=== PATIENT | male | born 1975 | race Hispanic/Latino ===

== ENCOUNTER 2020-01-13 14:16 | Emergency (ER) | payer BC ==
[~2020-01-13] VITALS: Ht 177.8 cm; Wt 123.8 kg
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
[~2020-01-13 14:16] MED LIST: NAPROXEN500 MG PO
[2020-01-13] MEDS ORDERED: GLUCOPHAGE500 MG PO (16:02)
[2020-01-13] MEDS ORDERED: ONDANSETRON ODT8 MG PO (16:02)
[2020-01-13] MEDS ORDERED: OMEPRAZOLE20 MG PO (16:02)
[2020-01-13] MEDS ORDERED: GLIPIZIDE10 MG PO (16:22)
== END 2020-01-13 16:37 | disposition home or self-care (01) ==
LOC: ED 14:16
DX: E10.65 Type 1 diabetes mellitus with hyperglycemia (principal)
CPT/HCPCS: 80053; 81001; 82010; 82803; 83690; 85025; 96361; 96374; 96375; 99284-25; C9113; J2405; J7030

== ENCOUNTER 2021-09-10 17:09 | Emergency (ER) | payer BC ==
[~2021-09-10] VITALS: Ht 177.8 cm; Wt 113.4 kg
[~2021-09-10 17:09] MED LIST changes: +GLIPIZIDE10 MG PO; +GLUCOPHAGE500 MG PO; +OMEPRAZOLE20 MG PO; +ONDANSETRON ODT8 MG PO
--- NOTE | 2021-09-12 16:30 | EKG ---
[facility] [address] [place] [address] Signed Normal sinus rhythm Normal ECG When compared with ECG of 08-JAN-2017 09:02, PA interval has decreased Vent. rate has increased BY 48 BPM Confirmed by JORDON BUTT DO ([id number]) on 09/12/2021 4:30:06 PM Electronically Signed By: JORDON BUTT DO 09/12/21 1630 PATIENT NAME: JONATHAN MARIN Electrocardiogram DATE OF : 79 PHYSICIAN: JORDON BUTT DO REPORT #: [id number] REPORT IS CONFIDENTIAL AND NOT TO BE RELEASED WITHOUT AUTHORIZATION
== END 2021-09-11 00:38 | disposition home or self-care (01) ==
LOC: ED 17:09
DX: U07.1 COVID-19 (principal); J12.82 Pneumonia due to coronavirus disease 2019; E66.9 Obesity, unspecified; E10.9 Type 1 diabetes mellitus without complications; Z79.84 Long term (current) use of oral hypoglycemic drugs; Z68.35 Body mass index [BMI] 35.0-35.9, adult
CPT/HCPCS: 71045; 93005; 93010; 96374; 99285-25; J1885; J7030; M0243; Q0244

== ENCOUNTER 2024-03-07 11:14 | Emergency (ER) | payer BC ==
[~2024-03-07] VITALS: Ht 180.3 cm; Wt 117.6 kg
[2024-03-07] MEDS ORDERED: SODIUM CHLORIDE 0.9% 1,000 ML IV ONE (12:30)
[2024-03-07] MEDS ORDERED: glipiZIDE 10 MG TAB PO ONE (12:30)
[2024-03-07 12:57] LABS: HEMOGLOBIN 15.2 g/dL (12.0-18.0); NEUTROPHILS 62.1 % (39-80); PLATELET COUNT 225 K/uL (140-440)
[2024-03-07 12:59] LABS: BASOPHILS 0.6 % (0-2); HEMATOCRIT 45.3 % (35.0-50.0); LYMPHOCYTES 29.1 % (24-44); MCH 28.8 (27-36); MCHC 33.6 g/dl (30-36); MCV 85.7 fl (81-99); MONOCYTES 6.2 % (0-12); RBC 5.28 M/ul (4.3-5.7); RDW 13.1 (10.5-15.0)
[2024-03-07 13:16] LABS: ALBUMIN 3.3 g/dL (3.4-5.0); ALBUMIN/GLOBULIN RATIO 0.69 (1.1-2.4); ANION GAP 12.9 (7-21); BILIRUBIN, TOTAL 0.4 ng/dL (0.2-1.0); BUN/CREATININE RATIO 14.63 (6.0-28.6); CALCIUM 8.5 mg/dL (8.5-10.1); CREATININE, SERUM 0.82 mg/dL (0.70-1.30); POTASSIUM 3.9 mmol/L (3.5-5.1); PROTEIN, TOTAL 8.1 g/dL (6.4-8.2)
[2024-03-07 13:38] LABS: BILIRUBIN, URINE NEGATIVE (negative); BLOOD/HGB, URINE NEGATIVE (Negative); KETONE, URINE >=80 (Negative); LEUK ESTERASE, URINE NEGATIVE (negative); NITRITE, URINE NEGATIVE (negative); PH, URINE 5.5 (5-7)
[2024-03-07 14:34] VITALS: BP 136/77
== END 2024-03-07 14:32 | disposition home or self-care (01) ==
LOC: ED 11:14
PROVIDERS: Emergency Medicine
DX: E11.65 Type 2 diabetes mellitus with hyperglycemia (principal); Z79.899 Other long term (current) drug therapy
CPT/HCPCS: 36415; 80053; 81003; 85025; 96360; 99283; J7030

== ENCOUNTER 2024-06-12 12:49 | Emergency (ER) | payer BC ==
[~2024-06-12] VITALS: Ht 180.3 cm; Wt 119.4 kg
[2024-06-12] MEDS ORDERED: MOUNJARO5 MG/0.5 M SQ (14:37)
[2024-06-12 15:46] LABS: EOSINOPHILS 1.7 % (0-6); HEMOGLOBIN 14.6 g/dL (12.0-18.0); LYMPHOCYTES 22.2 % (24-44); MCH 29.4 (27-36); MCHC 34.7 g/dl (30-36); MCV 84.8 fl (81-99); NEUTROPHILS 67.1 % (39-80); PLATELET COUNT 261 K/uL (140-440); RBC 4.95 M/ul (4.3-5.7); RDW 13.3 (10.5-15.0)
[2024-06-12 16:09] LABS: ALBUMIN 3.4 g/dL (3.4-5.0); ALBUMIN/GLOBULIN RATIO 0.74 (1.1-2.4); ALKALINE PHOSPHATASE 81 U/L (46-116); ALT (SGPT) 40 U/L (14-59); ANION GAP 9.8 (7-21); AST (SGOT) 21 U/L (15-37); BILIRUBIN, TOTAL 0.2 ng/dL (0.2-1.0); BUN/CREATININE RATIO 19.76 (6.0-28.6); CALCIUM 9.2 mg/dL (8.5-10.1); CARBON DIOXIDE 28 mmol/L (21-32); CHLORIDE 106 mmol/L (98-107); CREATININE, SERUM 0.86 mg/dL (0.70-1.30); GLOMERULAR FILTRATION RATE,EST 108 mL/min (>60); MAGNESIUM 2.1 mg/dL (1.8-2.4); POTASSIUM 3.8 mmol/L (3.5-5.1); UREA NITROGEN 17 mg/dL (7-18)
[2024-06-12 16:30] VITALS: BP 115/78
--- NOTE | 2024-06-13 23:11 | EKG ---
[facility] [address] [place] [address] Signed Sinus bradycardia with 1st degree AV block Minimal voltage criteria for LVH, may be normal variant ( R in aVL ) Borderline ECG When compared with ECG of 10-SEP-2021 17:15, Sinus bradycardia is now present , but similar to 08-JAN-2017 Confirmed by Cherelle Jaramillo MD () on 06/13/2024 11:10:52 PM Electronically Signed By: CHERELLE JARAMILLO MD 06/13/24 2311 PATIENT NAME: JONATHAN MARIN Electrocardiogram DATE OF : 79 PHYSICIAN: CHERELLE JARAMILLO MD REPORT #: [id number] REPORT IS CONFIDENTIAL AND NOT TO BE RELEASED WITHOUT AUTHORIZATION
== END 2024-06-12 17:10 | disposition home or self-care (01) ==
LOC: ED 12:49
PROVIDERS: Emergency Medicine
DX: R00.2 Palpitations (principal); E11.9 Type 2 diabetes mellitus without complications; Z79.85 Long-term (current) use of injectable non-insulin antidiabetic drugs
CPT/HCPCS: 36415; 80053; 83036; 83735; 84484; 85025; 93005; 93010; 99285